=== PATIENT | female | born 1970 | race Caucasian/White ===

== ENCOUNTER 2016-08-13 10:36 | Emergency (ER) | payer OTHER ==
[~2016-08-13] VITALS: Ht 157.5 cm; Wt 60.0 kg
[~2016-08-13 10:36] MED LIST: CELE20TA PO
[2016-08-13 10:39] VITALS: PULSE 112; RESP 18
[2016-08-13 10:40] VITALS: BP 121/81; PULSE 148; RESP 24; TEMP 98.1; O2SAT 99
[2016-08-13] MEDS ORDERED: SODIUM CHLOR 0.9% 1000 ML INJ 1,000 ML IV SCH (11:14)
[2016-08-13] MEDS ORDERED: SODIUM CHLORIDE 0.9% FLUSH 10 ML FLUSH IV FLUSH PRN (11:15)
[2016-08-13] MEDS ORDERED: ONDANSETRON HCL 4 MG/2 ML VIAL IVP ONE (11:15)
[2016-08-13 11:23] VITALS: O2SAT 93
--- NOTE | 2016-08-13 11:24 | PD ---
HPI Chief Complaint: Alcohol/Drug Intoxication Time Seen by Provider: 11:16 Travel History International Travel<30 days: No Contact w/Intl Traveler<30days: No Traveled to known affect area: No History of Present Illness HPI Patient comes in for evaluation of nausea, vomiting, diarrhea, and lower abdominal pain ongoing for 2-3 weeks. Patient's mother would also like patient to get detox for alcohol abuse. Patient states she drinks 3 L of wine a day. Patient reports the vomiting is nonbilious and nonbloody. Denies any blood or darkening noted in stool. Denies any recent antibiotic use. Patient denies anything making it better. Symptoms get worse anytime she tries to eat or drinks anything. Patient states she last drank alcohol about 4 hours ago. Patient reports pain is a cramping sensation without radiation. Denies any fevers, chest pain, shortness of breath, vaginal discharge, neck pain, or headaches. PFSH Past Medical History Anxiety: Yes Depression: Yes Cardiovascular Problems: Yes (HYPOTENSION) Diminished Hearing: No Endocrine: No Genitourinary: No Hiatal Hernia: Yes Immune Disorder: No Musculoskeletal: No Neurologic: No Psychiatric: Yes Reproductive: No Respiratory: Yes (PE x2) : 2 Para: 0 Miscarriage: 2 Social History Alcohol Use: Yes (DRINK WINE EVERY DAY ) Tobacco Use: No Substance Use: No Allergies-Medications (Allergen,Severity, Reaction): Coded Allergies: Bactrim (Verified Allergy, Severe, RASH, 08/13/16) Sulfa (Verified Allergy, Severe, Hives, 08/13/16) Reported Meds & Prescriptions Reported Meds & Active Scripts Active Zofran Odt (Ondansetron Odt) 4 Mg Tab 4 Mg SL Q6HR PRN Valium (Diazepam) 10 Mg Tab 10 Mg PO BID PRN Reported Celexa (Citalopram Hydrobromide) 20 Mg Tab 20 Mg PO DAILY Review of Systems Except as stated in HPI: all other systems reviewed are Neg Physical Exam Narrative GENERAL: Well-developed, well nourished, in no acute distress, and non-ill appearing. SKIN: Focused skin assessment warm and dry. HEAD: Atraumatic. Normocephalic. EYES: Pupils equal and round. EOMI. No scleral icterus. No injection or drainage. ENT: No nasal bleeding or discharge. Mucous membranes pink and moist. NECK: Trachea midline. No JVD. Supple. No nuclear rigidity. CARDIOVASCULAR: Tachycardia rate and regular rhythm. No murmur appreciated. RESPIRATORY: No accessory muscle use. No respiratory distress. Clear to auscultation. Breath sounds equal bilaterally. GASTROINTESTINAL: Abdomen soft, nondistended, and without guarding. Hepatic and splenic margins not palpable. Normal bowel sounds 4. No pulsatile mass. Patient reports tenderness to palpation throughout her lower abdomen greatest in left lower quadrant. MUSCULOSKELETAL: No obvious deformities. No clubbing. No cyanosis. No edema. Full range of motion. NEUROLOGICAL: Awake and alert. No obvious cranial nerve deficits. Motor grossly within normal limits. Normal speech. PSYCHIATRIC: Appropriate mood and affect; insight and judgment normal. Data Data Last Documented VS Vital Signs Date Time Temp Pulse Resp B/P Pulse Ox O2 Delivery O2 Flow Rate FiO2 08/13/16 13:54 86 18 107/72 94 08/13/16 11:40 Room Air 08/13/16 10:40 98.1 Orders Complete Blood Count With Diff (08/13/16 11:14) Comprehensive Metabolic Panel (08/13/16 11:14) Lipase (08/13/16 11:14) Prothrombin Time / Inr (Pt) (08/13/16 11:14) Act Partial Throm Time (Ptt) (08/13/16 11:14) Urinalysis - C+S If Indicated (08/13/16 11:14) Ct Abd/Pel W/O Iv Contrast (08/13/16 11:14) Iv Access Insert/Monitor (08/13/16 11:14) Ecg Monitoring (08/13/16 11:14) Oximetry (08/13/16 11:14) Ondansetron Inj (Zofran Inj) (08/13/16 11:15) Sodium Chlor 0.9% 1000 Ml Inj (Ns 1000 M (08/13/16 11:14) Sodium Chloride 0.9% Flush (Ns Flush) (08/13/16 11:15) Ed Urine Pregnancytest Poc (08/13/16 11:14) Chest, Single Ap (08/13/16 ) Lorazepam Inj (Ativan Inj) (08/13/16 12:00) Chlordiazepoxide (Librium) (08/13/16 13:30) Labs Laboratory Tests Test 08/13/16 08/13/16 11:30 11:42 White Blood Count 3.1 TH/MM3 Red Blood Count 3.68 MIL/MM3 Hemoglobin 12.9 GM/DL Hematocrit 36.5 % Mean Corpuscular Volume 99.4 FL Mean Corpuscular Hemoglobin 35.1 PG Mean Corpuscular Hemoglobin 35.3 % Concent Red Cell Distribution Width 26.2 % Platelet Count 194 TH/MM3 Mean Platelet Volume 8.3 FL Neutrophils (%) (Auto) 46.9 % Lymphocytes (%) (Auto) 37.9 % Monocytes (%) (Auto) 13.8 % Eosinophils (%) (Auto) 0.1 % Basophils (%) (Auto) 1.3 % Neutrophils # (Auto) 1.5 TH/MM3 Lymphocytes # (Auto) 1.2 TH/MM3 Monocytes # (Auto) 0.4 TH/MM3 Eosinophils # (Auto) 0.0 TH/MM3 Basophils # (Auto) 0.0 TH/MM3 CBC Comment AUTO DIFF Differential Comment AUTO DIFF CONFIRMED Target Cells 1+ Prothrombin Time 11.4 SEC Prothromb Time International 1.0 RATIO Ratio Activated Partial 23.8 SEC Thromboplast Time Sodium Level 136 MEQ/L Potassium Level 4.8 MEQ/L Chloride Level 98 MEQ/L Carbon Dioxide Level 26.4 MEQ/L Anion Gap 12 MEQ/L Blood Urea Nitrogen 6 MG/DL Creatinine 0.54 MG/DL Estimat Glomerular Filtration 122 ML/MIN Rate Random Glucose 117 MG/DL Calcium Level 8.3 MG/DL Total Bilirubin 2.3 MG/DL Aspartate Amino Transf 615 U/L (AST/SGOT) Alanine Aminotransferase 137 U/L (ALT/SGPT) Alkaline Phosphatase 225 U/L Total Protein 7.1 GM/DL Albumin 3.1 GM/DL Lipase 483 U/L Urine Color YELLOW Urine Turbidity HAZY Urine pH 6.0 Urine Specific [place] 1.011 Urine Protein 30 mg/dL Urine Glucose (UA) NEG mg/dL Urine Ketones TRACE mg/dL Urine Occult Blood NEG Urine Nitrite NEG Urine Bilirubin NEG Urine Urobilinogen 2.0 MG/DL Urine Leukocyte Esterase NEG Urine RBC 0-3 /hpf Urine WBC 0-2 /hpf Urine Squamous Epithelial 0-5 /hpf Cells Urine Bacteria RARE /hpf Urine Hyaline Casts 6-9 /lpf Urine Mucus FEW /lpf Microscopic Urinalysis Comment CULT NOT INDICATED MDM Medical Decision Making Medical Screen Exam Complete: Yes Emergency Medical Condition: Yes Interpretation(s) Chest x-ray reviewed with radiologist shows: Normal examination. CT the abdomen and pelvis read by radiologist shows: 1. Severe hepatic steatosis. 2. IVC filter. 3. Left-sided hip screw. 4. Nonspecific diffuse rectal wall thickening. Rectum is nondistended. Differential Diagnosis Diverticulitis, pancreatitis, electrolyte abnormality, dehydration, aspiration pneumonia, UTI, colitis, gastritis, enteritis, other Narrative Course 1225 patient reassessed found to be resting comfortably in bed and in no acute distress. Patient which is now better status post hydration and IV medication. Discussed all laboratory findings with patient. Awaiting CT scan. The patient presented with symptoms that are likely most likely secondary to patient's chronic alcohol abuse. There was no significant history of fever. The patient appeared comfortable, well hydrated and the abdominal exam was unremarkable and minimal to nontender to me. Laboratory and radiographic/CT evaluation revealed no significant new abnormality. There was no evidence of an acute, surgical abdomen at this time. There was no clinical evidence to support cholecystitis/cholelithiasis, pancreatitis, perforation of gastric ulcer, colitis, diverticulitis, bacterial peritonitis, obstruction, volvulus, early appendicitis, or hernial incarceration or strangulation nor significant GIB at this time. There was no evidence to support vascular pathology such as AAA, mesenteric ischemia. There was also no clinical evidence by history, exam or risk factors to suggest atypical presentation of cardiac disease such as ACS, AMI or atypical angina. No evidence to suggest genitourinary etiology as well. During the course of the ED visit, the patient noted improvement. Clinical picture was discussed with the patient, as well as plan of care. The patient was instructed to follow up with their physician at [facility]. Abdominal pain warnings and jaundice symptoms were discussed with the patient. The patient is to return if worsens, pain worsens or changes, develop fever, inability to tolerate fluids with or without vomiting, unable to establish follow up or as needed. The patient agrees with plan. Patient in no obvious distress upon re-evaluation. All pertinent laboratory/ Radiology result(s) discussed with patient. Discussed patient with Dr. Rueda , who saw and evaluated the patient and is in agreement with plan of care and disposition. Any questions/concerns in reference to patient diagnosis/ condition discussed and clarified prior to patient's discharge. Reinforced sheer importance of close follow up with patient's primary physician or primary care clinic. Instructed patient to return to ED immediately, if symptoms return/ worsen. Pt showed understanding of above instructions. Further instructions and recommendations were detailed in discharge paperwork. Pt ambulated without difficulty out of ED at discharge. Diagnosis Primary Impression: ETOHism Additional Impressions: ETOH liver disease Hepatomegaly Referrals: [facility] Patient Instructions: Alcohol Use Disorder (GEN), Alcoholic Hepatitis (ED), General Instructions Additional Instructions: Follow-up with your primary care physician, [facility], and/or other detox center for alcohol detox as soon as possible. Take all medication as prescribed and do not take with alcohol. Stop drinking. Return to the emergency department if symptoms get worse. Med/Other Pt SpecificInfo: Prescription(s) given Scripts Ondansetron Odt (Zofran Odt)4 Mg Tab4 Mg SL Q6HR PRN (Nausea/Vomiting) #15 TAB Ref 0 Prov:Sameer Rueda MD 08/13/16 Diazepam (Valium)10 Mg Tab10 Mg PO BID PRN (WITHDRAWAL) #15 TAB Ref 0 Prov:Sameer Rueda MD 08/13/16 Disposition: 01 DISCHARGE HOME Condition: Stable Dawit Russell Aug 13, 2016 11:24
[2016-08-13 11:49] LABS: AUTOMATED NEUTROPHIL # 1.5 TH/MM3 (1.8-7.7); BASOPHIL % 1.3 % (0.0-2.0); EOSINOPHIL % 0.1 % (0.0-4.0); HEMATOCRIT 36.5 % (35.0-46.0); LYMPH % 37.9 % (9.0-44.0); LYMPHOCYTE # 1.2 TH/MM3 (1.0-4.8); MEAN CELL VOLUME 99.4 FL (80.0-100.0); MEAN CORPUSCULAR HEMOGLOBIN 35.1 PG (27.0-34.0); MEAN CORPUSCULAR HGB CONC 35.3 % (32.0-36.0); MONO % 13.8 % (0.0-8.0); NEUT % 46.9 % (16.0-70.0); PLATELET COUNT 194 TH/MM3 (150-450); RED BLOOD COUNT 3.68 MIL/MM3 (4.00-5.30); RED CELL DISTRIBUTION WIDTH 26.2 % (11.6-17.2); WHITE BLOOD COUNT 3.1 TH/MM3 (4.0-11.0)
[2016-08-13 11:53] LABS: HEMO FLAGS AUTO DIFF
--- NOTE | 2016-08-13 11:54 | RADRPT ---
EXAM DATE/TIME: 08/13/2016 11:34 [facility] COMPARISON: No previous studies available for comparison. INDICATIONS : Shortness of breath. MEDICAL HISTORY : None. SURGICAL HISTORY : None. ENCOUNTER: Initial ACUITY: 1 day PAIN SCORE: 0/10 LOCATION: Bilateral chest FINDINGS: A single view of the chest demonstrates the lungs to be symmetrically aerated without evidence of mas s, infiltrate or effusion. The cardiomediastinal contours are unremarkable. Osseous structures are intact. CONCLUSION: Normal examination. Jamil Rizvi Jr., MD on August 13, 2016 at 11:52 Board Certified Radiologist. This report was verified electronically.
[2016-08-13 11:59] LABS: BLOOD, URINE NEG (NEG); GLUCOSE,URINE NEG (NEG); KETONE, URINE TRACE mg/dL (NEG); NITRITE,URINE NEG (NEG); URINE COLOR YELLOW (YELLW/STRAW)
[2016-08-13 11:59] LABS: APTT (PATIENT) 23.8 SEC (24.3-30.1); PROTHROMBIN TIME - PATIENT 11.4 SEC (9.8-11.6)
[2016-08-13] MEDS ORDERED: LORazepam 2 MG/ML VIAL IV PUSH ONE (12:00)
[2016-08-13 12:05] LABS: BACTERIA, URINE RARE /hpf; MUCUS URINE FEW /lpf (OCC); RBC, URINE 0-3 /hpf (0-3); WBC, URINE 0-2 /hpf (0-5)
[2016-08-13 12:06] LABS: COMMENT (UR) CULT NOT INDICATED; COMMENT2 (UR) CULT NOT INDICATED; CULTURE IF INDICATED CULT NOT INDICATED; SQUAMOUS EPITHELIAL CELL URINE 0-5 /hpf (0-5)
[2016-08-13 12:09] LABS: ALKALINE PHOSPHATASE 225 U/L (45-117); TOTAL BILIRUBIN ADULT 2.3 MG/DL (0.2-1.0)
[2016-08-13 12:11] LABS: ALT (GPT) 137 U/L (10-53); ANION GAP 12 MEQ/L (5-15); AST (GOT) 615 U/L (15-37); BICARBONATE 26.4 MEQ/L (21.0-32.0); BLOOD UREA NITROGEN 6 MG/DL (7-18); CHLORIDE 98 MEQ/L (98-107); GLOMERULAR FILTRATION RATE 122 ML/MIN (>89); POTASSIUM 4.8 MEQ/L (3.5-5.1); SODIUM (NA) 136 MEQ/L (136-145)
[2016-08-13 12:26] LABS: SCAN/DIFF AUTO DIFF CONFIRMED; TARGET CELLS 1+ (NORMAL)
--- NOTE | 2016-08-13 13:17 | RADRPT ---
EXAM DATE/TIME: 08/13/2016 12:38 [facility] COMPARISON: CT ABDOMEN & PELVIS W/O CONTRAST, January 01, 2016, 23:58. INDICATIONS : Abdomen pain; alcohol withdraw. ORAL CONTRAST: No oral contrast ingested. RADIATION DOSE: 9.96 CTDIvol (mGy) MEDICAL HISTORY : Hernia, hiatal. ETOH SURGICAL HISTORY : Left femur. ENCOUNTER: Initial ACUITY: 1 day PAIN SCALE: 6/10 LOCATION: Bilateral abdomen. TECHNIQUE: Volumetric scanning of the abdomen and pelvis was performed. Using automated exposure control and ad justment of the mA and/or kV according to patient size, radiation dose was kept as low as reasonably achievable to obtain optimal diagnostic quality images. FINDINGS: LOWER LUNGS: The visualized lower lungs are clear. LIVER: Severe diffuse hepatic steatosis. No focal mass. SPLEEN: Normal size without lesion. PANCREAS: Within normal limits. KIDNEYS: Normal in size and shape. There is no mass, stone, or hydronephrosis. ADRENAL GLANDS: Within normal limits. VASCULAR: IVC filter in place. BOWEL/MESENTERY: Nonspecific diffuse rectal wall thickening. Rectum is nondistended. Appendix within normal limits. No evidence of bowel dilatation. No free air or free fluid. ABDOMINAL WALL: Within normal limits. RETROPERITONEUM: There is no lymphadenopathy. BLADDER: No wall thickening or mass. REPRODUCTIVE: Within normal limits. INGUINAL: There is no lymphadenopathy or hernia. MUSCULOSKELETAL: Left-sided hip screw. CONCLUSION: 1. Severe hepatic steatosis. 2. IVC filter. 3. Left-sided hip screw. 4. Nonspecific diffuse rectal wall thickening. Rectum is nondistended. Nghia Pak MD on August 13, 2016 at 13:11 Board Certified Radiologist. This report was verified electronically.
[2016-08-13] MEDS ORDERED: chlordiazePOXIDE 25 MG CAP PO PRN (13:30)
[2016-08-13] MEDS ORDERED: DIAZ10 PO (13:45)
[2016-08-13] MEDS ORDERED: ZOFR4TAB3 SL (13:51)
[2016-08-13 13:54] VITALS: BP 107/72
== END 2016-08-13 15:42 | disposition home or self-care (01) ==
LOC: NEPD 10:36
DX: F10.20 Alcohol dependence, uncomplicated (principal); K70.9 Alcoholic liver disease, unspecified; K76.0 Fatty (change of) liver, not elsewhere classified; R16.0 Hepatomegaly, not elsewhere classified; Z86.711 Personal history of pulmonary embolism
CPT/HCPCS: 71010; 74176; 80053; 81001; 83690; 84703; 85025; 85610; 85730; 96374; 96375; 99285; J2060; J2405; J7030